=== PATIENT | male | born 1995 | race African-American/Black ===

== ENCOUNTER 2024-01-09 19:37 | Emergency (ER) | payer BC ==
[~2024-01-09] VITALS: Ht 185.4 cm; Wt 61.0 kg
[2024-01-09 19:53] VITALS: BP 140/104; PULSE 68; RESP 16; TEMP 98.2; O2SAT 100
== END 2024-01-09 22:08 | disposition home or self-care (01) ==
LOC: ER 19:37
DX: K62.89 Other specified diseases of anus and rectum (principal)
CPT/HCPCS: 99281